=== PATIENT | female | born 1990 | race Caucasian/White ===

== ENCOUNTER 2018-02-09 11:06 | Emergency (ER) | payer MEDICAID ==
[~2018-02-09] VITALS: Ht 167.6 cm; Wt 86.2 kg
[2018-02-09 11:10] VITALS: BP_SYST 115
[2018-02-09 12:00] VITALS: BP_SYST 123
== END 2018-02-09 12:00 | disposition home or self-care (01) ==
LOC: SED 11:06
DX: B09 Unspecified viral infection characterized by skin and mucous membrane lesions (principal); R03.0 Elevated blood-pressure reading, without diagnosis of hypertension
CPT/HCPCS: 99283

== ENCOUNTER 2019-01-26 17:03 | Emergency (ER) | payer MEDICAID ==
[~2019-01-26] VITALS: Ht 165.1 cm; Wt 88.9 kg
[2019-01-26 17:08] VITALS: BP_SYST 130
--- NOTE | 2019-01-26 20:14 | NUR ---
Patient to ER bed 1 to gown for evaluation. Side rails up. Report given to Richard SANCHEZ.
--- NOTE | 2019-01-26 20:20 | NUR ---
Pt AAOx4 ambulated into ED c/o cough, dizziness, headache, nausea with 8/10 pain r/t cough x 1 week. No otheri njuries/complaints per pt/noted. Will continue to monitor.
[2019-01-26] MEDS ORDERED: guaiFENesin/DEXTROMETHORPHAN 1 EACH TAB.ER.12H PO ONE (21:00)
[2019-01-26] MEDS ORDERED: KETOROLAC TROMETHAMINE 30 MG VIAL IM ONE (21:00)
[2019-01-26] MEDS ORDERED: AMOXICILLIN 500 MG CAPSULE PO ONE (21:00)
--- NOTE | 2019-01-26 21:00 | NUR ---
ER Dr. Chapa at bedside examining patient.
[2019-01-26] MEDS ORDERED: guaiFENesin 200 MG/10 ML UDC PO ONE (21:15)
--- NOTE | 2019-01-26 21:18 | NUR ---
Medication administered. Pt tolerated well. No adverse reactions noted.
--- NOTE | 2019-01-26 22:01 | NUR ---
X-ray at bedside.
[2019-01-26 22:38] VITALS: BP_SYST 124
--- NOTE | 2019-01-26 22:38 | NUR ---
Patient given written and verbal discharge instructions and verbalizes understanding. ER MD discussed with patient the results and treatment provided. Patient in stable condition. ID arm band removed. Rx of [place], Amoxicillin, Delsym Cough given. Patient educated on pain management and to follow up with PMD. Pain Scale 2/10. Opportunity for questions provided and answered. Medication side effect fact sheet provided.
== END 2019-01-26 22:38 | disposition home or self-care (01) ==
LOC: SED 17:03
DX: J40 Bronchitis, not specified as acute or chronic (principal); R03.0 Elevated blood-pressure reading, without diagnosis of hypertension
CPT/HCPCS: 71045; 81025; 96372; 99283; J1885